=== PATIENT | female | born 1995 | race African-American/Black ===

== ENCOUNTER 2019-03-05 15:37 | Emergency (ER) | payer OTHER ==
[~2019-03-05] VITALS: Ht 160 cm; Wt 104.5 kg
[2019-03-05 16:19] LABS: BASO # 0.1 10^3/uL (0.0-0.2); BASO % 0.9 % (0.0-1.0); EOS # 0.2 10^3/uL (0.0-0.50); EOS % 2.1 % (0.0-3.0); HEMATOCRIT 36.1 % (36.0-47.0); LYMPH # 2.4 10^3/uL (1.5-6.5); LYMPH % 34.8 % (24.0-44.0); MEAN CORPUSCULAR HEMOGLOBIN 31.7 pg (27.0-33.0); MEAN CORPUSCULAR HGB CONC 33.2 g/dl (32.0-36.5); MEAN CORPUSCULAR VOLUME 95.5 fl (80.0-96.0); MONO # 0.7 10^3/uL (0.0-0.8); MONO % 9.6 % (0.0-5.0); NEUTROPHILS # 3.7 10^3/uL (1.8-7.7); NEUTROPHILS % 52.3 % (36.0-66.0); PLATELET COUNT, AUTOMATED 294 10^3/uL (150-450); RED BLOOD COUNT 3.78 10^6/uL (4.00-5.40)
[2019-03-05 16:22] LABS: URINE PREG TEST POSITIVE (NEGATIVE)
[2019-03-05 17:29] LABS: ALBUMIN 3.6 GM/DL (3.2-5.2); ALT/SGPT 13 U/L (12-78); BILIRUBIN,DIRECT 0.1 MG/DL (0.0-0.2); BILIRUBIN,TOTAL 0.3 MG/DL (0.2-1.0); BLOOD UREA NITROGEN 14 MG/DL (7-18); CARBON DIOXIDE LEVEL 24 MEQ/L (21-32); CHLORIDE LEVEL 107 MEQ/L (98-107); CREATININE FOR GFR 0.78 MG/DL (0.55-1.30); GLOMERULAR FILTRATION RATE > 60.0 (>60); GLUCOSE, FASTING 89 MG/DL (70-100); HCG, SERUM QUANTITATIVE 20366 MIU/ML; LIPASE 192 U/L (73-393); POTASSIUM SERUM 3.3 MEQ/L (3.5-5.1); SODIUM LEVEL 139 MEQ/L (136-145); TOTAL PROTEIN 6.7 GM/DL (6.4-8.2)
[2019-03-05] MEDS ORDERED: POTASSIUM CHLORIDE 10 MEQ SR TABLET PO ONE (17:45)
[2019-03-05 17:48] LABS: CHLAMYDIA DNA AMPLIFICATION NEGATIVE (NEGATIVE); GC DNA AMPLIFICATION NEGATIVE (NEGATIVE)
[2019-03-05] MEDS ORDERED: ONDANSETRON 4 MG ORAL DISINTEGRATING TAB (Q0162 PER 1MG) PO ONE (18:00)
--- NOTE | 2019-03-05 19:05 | REPVR ---
EXAM: US First Trimester, Transabdominal and US Duplex Artery or Vein, Ovaries, Limited EXAM DATE/TIME: 03/05/2019 5:02 PM CLINICAL HISTORY: 23 years old, female; complicated by abdominal or pelvic pain; Left lower quadrant; First trimester; Gestational age or lmp: 6; ; Additional info: Llq pain preg eval for iup TECHNIQUE: Imaging protocol: Real-time transabdominal obstetrical ultrasound of the maternal pelvis and a first trimester , less than 14 weeks 0 days, with image documentation. Real-time duplex ultrasound scan of the arterial or venous flow of the ovaries with B-mode, color Doppler flow and spectral waveform analysis, limited Duplex. COMPARISON: No relevant prior studies available. FINDINGS: GESTATION: Gestation: There is a single intrauterine gestational sac demonstrating decidual reaction. This contains a pole and yolk sac. Heart rate: The heart rate is 99 bpm. Placenta: Unremarkable. No subchorionic bleed. Amniotic fluid: Amniotic and chorionic fluid are normal for gestational age. BIOMETRY: Estimated gestational age: The crown-rump length is 0.3 cm corresponding to a gestational age of 5 weeks 6 days. Estimated due date: The CHARLES is 10/30/2019. MATERNAL: Uterus: Unremarkable. Right adnexa: The right ovary measures 2.2 x 3.5 x 2.0 cm. There is a 0.9 cm follicle. Normal color and spectral blood flow. The arterial peak systolic velocity is 26 cm/s. Left adnexa: The left ovary measures 2.8 x 4.2 x 2.3 cm. There is a left ovarian simple cyst measuring 2.1 x 2.6 x 1.6 cm. Normal color and spectral blood flow. The arterial peak systolic velocity is 21 cm/s. Intraperitoneal: No intraperitoneal free fluid. IMPRESSION: 1. Single live intrauterine gestation, as above. 2. The heart rate is 99 bpm, this is borderline low which may be related to the early gestational age. 3. Left ovarian simple cyst. 4. No evidence of ovarian torsion. Electronically signed by: Britt Che On 03/05/2019 19:05:32 PM
[2019-03-05 19:13] VITALS: BP 103/59
== END 2019-03-05 20:43 | disposition left against medical advice (07) ==
LOC: M ED 15:37
DX: O99.89 Other specified diseases and conditions complicating pregnancy, childbirth and the puerperium (principal); R10.9 Unspecified abdominal pain; O34.81 Maternal care for other abnormalities of pelvic organs, first trimester; Z3A.01 Less than 8 weeks gestation of pregnancy; Z53.21 Procedure and treatment not carried out due to patient leaving prior to being seen by health care provider
CPT/HCPCS: 76801; 80048; 80076; 81001; 83690; 84702; 84703; 85025; 86850; 86900; 86901; 87210; 87491; 87591; 93976; 99282; Q0162

== ENCOUNTER 2019-04-09 13:49 | Emergency (ER) | payer OTHER ==
[~2019-04-09] VITALS: Ht 167.6 cm; Wt 50.9 kg
[2019-04-09] MEDS ORDERED: METR0.759 (13:56)
[2019-04-09] MEDS ORDERED: NITR100C2 (13:56)
[2019-04-09 14:35] LABS: BASO % 0.5 % (0.0-1.0); EOS # 0.1 10^3/uL (0.0-0.5); EOS % 1.1 % (0.0-3.0); HEMATOCRIT 31.8 % (36.0-47.0); HEMOGLOBIN 10.7 g/dl (12.0-15.5); LYMPH # 1.9 10^3/uL (1.5-5.0); LYMPH % 29.5 % (24.0-44.0); MEAN CORPUSCULAR HEMOGLOBIN 31.9 pg (27.0-33.0); MEAN CORPUSCULAR HGB CONC 33.6 g/dl (32.0-36.5); MEAN CORPUSCULAR VOLUME 94.9 fl (80.0-96.0); MONO # 0.6 10^3/uL (0.0-0.8); MONO % 9.2 % (0.0-5.0); NEUTROPHILS # 3.8 10^3/uL (1.5-8.5); NEUTROPHILS % 59.2 % (36.0-66.0); PLATELET COUNT, AUTOMATED 281 10^3/uL (150-450); RED BLOOD COUNT 3.35 10^6/uL (4.00-5.40); WHITE BLOOD COUNT 6.4 10^3/uL (4.0-10.0)
[2019-04-09 15:43] LABS: ALBUMIN 3.4 GM/DL (3.2-5.2); ALT/SGPT 15 U/L (12-78); BILIRUBIN,DIRECT 0.1 MG/DL (0.0-0.2); BILIRUBIN,TOTAL 0.4 MG/DL (0.2-1.0); BLOOD UREA NITROGEN 12 MG/DL (7-18); CARBON DIOXIDE LEVEL 24 MEQ/L (21-32); CHLORIDE LEVEL 106 MEQ/L (98-107); CREATININE FOR GFR 0.66 MG/DL (0.55-1.30); GLOMERULAR FILTRATION RATE > 60.0 (>60); GLUCOSE, FASTING 108 MG/DL (70-100); HCG, SERUM QUANTITATIVE 131284 MIU/ML; LIPASE 233 U/L (73-393); POTASSIUM SERUM 3.6 MEQ/L (3.5-5.1); SODIUM LEVEL 136 MEQ/L (136-145); TOTAL PROTEIN 6.5 GM/DL (6.4-8.2)
[2019-04-09] MEDS ORDERED: ACETAMINOPHEN 500 MG TAB PO ONE (16:45)
--- NOTE | 2019-04-09 17:34 | REPVR ---
EXAM: US First Trimester, Transabdominal EXAM DATE/TIME: 04/09/2019 5:23 PM CLINICAL HISTORY: 23 years old, female; complicated by abdominal or pelvic pain; Left lower quadrant; First trimester; Gestational age or lmp: 11; ; Additional info: Left pelvic pain TECHNIQUE: Imaging protocol: Real-time transabdominal obstetrical ultrasound of the maternal pelvis and a first trimester , less than 14 weeks 0 days, with image documentation. COMPARISON: US OB 03/05/2019 4:53 PM FINDINGS: GESTATION: Gestation: Single gestational sac in the uterus. Single fetus in the gestational sac demonstrates a crown-rump length of 4.3 cm. Heart rate: heart rate is 163 beats per minute. Placenta: Early placental tissue forming anteriorly. Amniotic fluid: Amniotic and chorionic fluid are normal for gestational age. BIOMETRY: Estimated gestational age: Gestational age based on crown-rump length is 11 weeks 1 day which corresponds to a menstrual dates. CHARLES 10/28/2019. MATERNAL: Uterus: Unremarkable. Cervix: Unremarkable. Right adnexa: Unremarkable. Left adnexa: Left ovarian cyst measures 2.1 x 1.2 x 1.5 cm. Intraperitoneal: No intraperitoneal free fluid. IMPRESSION: Unremarkable early gestation of 11 weeks 1 day. Detailed structural survey can be performed between 19-20 weeks if clinically desired. Electronically signed by: El Davison On 04/09/2019 17:33:21 PM
[2019-04-09 17:37] VITALS: BP 112/64
== END 2019-04-09 18:03 | disposition home or self-care (01) ==
LOC: M ED 13:49
DX: O34.81 Maternal care for other abnormalities of pelvic organs, first trimester (principal); N83.202 Unspecified ovarian cyst, left side; O99.011 Anemia complicating pregnancy, first trimester; O23.591 Infection of other part of genital tract in pregnancy, first trimester; Z3A.11 11 weeks gestation of pregnancy; Z79.2 Long term (current) use of antibiotics

== ENCOUNTER 2019-05-30 14:33 | Emergency (ER) | payer OTHER ==
[~2019-05-30 14:33] MED LIST: METR0.759; NITR100C2
[2019-05-30] MEDS ORDERED: FOLI1TAB11 (14:42)
[2019-05-30] MEDS ORDERED: PREN1TAB14 (15:43)
[2019-05-30] MEDS ORDERED: UNIS25TA3 PO (15:43)
[2019-05-30] MEDS ORDERED: AMOX500C PO (16:55)
[2019-05-30 17:09] VITALS: BP 96/54
== END 2019-05-30 17:10 | disposition home or self-care (01) ==
LOC: M ED 14:33
DX: O23.42 Unspecified infection of urinary tract in pregnancy, second trimester (principal); Z87.442 Personal history of urinary calculi; Z87.440 Personal history of urinary (tract) infections; O99.512 Diseases of the respiratory system complicating pregnancy, second trimester; J45.909 Unspecified asthma, uncomplicated; Z91.018 Allergy to other foods; Z3A.18 18 weeks gestation of pregnancy; Z79.899 Other long term (current) drug therapy

== ENCOUNTER 2019-06-24 10:15 | Outpatient (CLI) | payer OTHER ==
[~2019-06-24] VITALS: Ht 165.1 cm; Wt 53.7 kg
[~2019-06-24 10:15] MED LIST changes: +AMOX500C PO; +FOLI1TAB11; +PREN1TAB14; +UNIS25TA3 PO
[2019-06-24 10:31] VITALS: BP 111/63
[2019-06-24] MEDS ORDERED: APAP325T4 PO (10:36)
--- NOTE | 2019-06-24 12:36 | IPNPDOC ---
Text Note Date of Service The patient was seen on 06/24/19. NOTE Triage Note Gabby is a 24yo with SIUP at 22+ weeks gestation who presented to triage with complaint of lower left abdominal pain. Pain does not come and go. No other sx- denies n/v/diarrhea/constipation. No vaginal bleeding, ctx, lof. Feels movement. 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 No e/o PTL- SCE closed/thick/high and no ctx on toco. Reassuring status. Vitals wnl, benign exam. Plan: -Reassurance provided -Keep next regular OB appt in Dec -Tylenol prn, warm baths -Return precautions discussed -Safe for discharge Dr. Dori Fountain MD VS,Manjula, I+O VS, Manjula, I+O Vital Signs Date Time Temp Pulse Resp B/P (MAP) Pulse Ox O2 Delivery O2 Flow Rate FiO2 06/24/19 10:31 97.7 85 17 111/63 (79) Dori Fountain MD Jun 24, 2019 12:36
== END 2019-06-24 12:40 | disposition home or self-care (01) ==
LOC: M LDO 10:15
PROVIDERS: ATTEND Obstetrics & Gynecology
DX: O26.892 Other specified pregnancy related conditions, second trimester (principal); R10.2 Pelvic and perineal pain; Z3A.22 22 weeks gestation of pregnancy
CPT/HCPCS: G0378; G0463

== ENCOUNTER 2019-07-28 12:59 | Emergency (ER) | payer OTHER ==
[~2019-07-28] VITALS: Ht 165.1 cm; Wt 54.7 kg
[2019-07-28 12:59] VITALS: BP 108/59
[~2019-07-28 12:59] MED LIST changes: +APAP325T4 PO
== END 2019-07-28 14:36 | disposition admitted as inpatient to this hospital (09) ==
LOC: M ED 12:59
DX: Z53.21 Procedure and treatment not carried out due to patient leaving prior to being seen by health care provider (principal)

== ENCOUNTER 2019-07-28 14:40 | Outpatient (CLI) | payer OTHER ==
[~2019-07-28] VITALS: Ht 165.1 cm; Wt 54.5 kg
[2019-07-28 15:07] VITALS: BP 106/65
[2019-07-28 16:43] LABS: APPEARANCE, URINE CLEAR (CLEAR); BACTERIA, URINE AUTO 1+ (NEGATIVE); BILIRUBIN, URINE AUTO NEGATIVE (NEGATIVE); BLOOD, URINE BLOOD NEGATIVE (NEGATIVE); COLOR, URINE YELLOW (YELLOW); GLUCOSE, URINE (UA) AUTO NEGATIVE (NEGATIVE); KETONE, URINE AUTO NEGATIVE (NEGATIVE); LEUKOCYTE ESTERASE, URINE AUTO NEGATIVE (NEGATIVE); MUCUS, URINE SMALL (NEGATIVE); NITRITE, URINE AUTO NEGATIVE (NEGATIVE); PROTEIN, URINE AUTO NEGATIVE (NEGATIVE); RBC, URINE AUTO 1 /HPF (0-3); SPECIFIC GRAVITY URINE AUTO 1.021 (1.002-1.035); SQUAMOUS EPITHELIAL CELL UR AU 2 /HPF (0-6); WBC, URINE AUTO 3 /HPF (0-3)
--- NOTE | 2019-07-28 17:01 | REP ---
Clinical: contractions and pelvic pain Comparison: 04/09/2019 . Findings: Examination demonstrates a single live intrauterine in amandeep breech presentation. motion is identified by technologist. Placenta is noted posterior/fundal and grade one without evidence for placenta previa or abruption. Amniotic fluid volume is normal. Cervix measures 4.3 cm in length and appears closed. FHR equals 143 beats per minute. Gestational age by LMP 26 weeks 6 days. Impression: Single live intrauterine in breech presentation. No gross abnormalities are identified. Cervix measures 4.3 cm length and appears closed. Electronically Signed by Gilbert Ding MD 07/28/2019 04:52 P
[2019-07-28 17:34] VITALS: BP 96/53
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
== END 2019-07-28 18:10 | disposition home or self-care (01) ==
LOC: M LDO 14:40
PROVIDERS: ATTEND Obstetrics & Gynecology
DX: O23.592 Infection of other part of genital tract in pregnancy, second trimester (principal); B37.3 Candidiasis of vulva and vagina; Z3A.26 26 weeks gestation of pregnancy
CPT/HCPCS: 59025; 76817; 81001; 87088; 87186; 99281; G0378; G0463

== ENCOUNTER 2019-08-14 23:57 | Outpatient (CLI) | payer OTHER ==
[~2019-08-14] VITALS: Ht 165.1 cm; Wt 57.1 kg
[2019-08-15 00:18] VITALS: BP 107/61
[2019-08-15] MEDS ORDERED: ONDANSETRON 4MG/2ML VIAL (J2405) IV ONE (00:45)
[2019-08-15] MEDS ORDERED: LR 1,000 ML IV ONE (00:45)
[2019-08-15 01:19] LABS: HEMATOCRIT 33.7 % (36.0-47.0); HEMOGLOBIN 10.8 g/dl (12.0-15.5); MEAN CORPUSCULAR HEMOGLOBIN 31.5 pg (27.0-33.0); MEAN CORPUSCULAR VOLUME 98.3 fl (80.0-96.0); PLATELET COUNT, AUTOMATED 224 10^3/uL (150-450); RED BLOOD COUNT 3.43 10^6/uL (4.00-5.40); WHITE BLOOD COUNT 7.5 10^3/uL (4.0-10.0)
[2019-08-15 01:24] LABS: APPEARANCE, URINE CLOUDY (CLEAR); BACTERIA, URINE AUTO 2+ (NEGATIVE); BILIRUBIN, URINE AUTO NEGATIVE (NEGATIVE); BLOOD, URINE BLOOD NEGATIVE (NEGATIVE); COLOR, URINE YELLOW (YELLOW); GLUCOSE, URINE (UA) AUTO NEGATIVE (NEGATIVE); KETONE, URINE AUTO NEGATIVE (NEGATIVE); LEUKOCYTE ESTERASE, URINE AUTO 1+ (NEGATIVE); MUCUS, URINE SMALL (NEGATIVE); NITRITE, URINE AUTO NEGATIVE (NEGATIVE); PROTEIN, URINE AUTO NEGATIVE (NEGATIVE); RBC, URINE AUTO 1 /HPF (0-3); SPECIFIC GRAVITY URINE AUTO 1.023 (1.002-1.035); SQUAMOUS EPITHELIAL CELL UR AU 8 /HPF (0-6); WBC, URINE AUTO 7 /HPF (0-3)
[2019-08-15 01:41] LABS: ALBUMIN 2.7 GM/DL (3.2-5.2); ALT/SGPT 17 U/L (12-78); BILIRUBIN,TOTAL 0.3 MG/DL (0.2-1.0); BLOOD UREA NITROGEN 10 MG/DL (7-18); CARBON DIOXIDE LEVEL 22 MEQ/L (21-32); CHLORIDE LEVEL 106 MEQ/L (98-107); GLOMERULAR FILTRATION RATE > 60.0 (>60); GLUCOSE, FASTING 76 MG/DL (70-100); POTASSIUM SERUM 3.7 MEQ/L (3.5-5.1); SODIUM LEVEL 136 MEQ/L (136-145)
[2019-08-15] MEDS ORDERED: NITROFURANTOIN (MACROBID) 100 MG CAP PO ONE (02:15)
[2019-08-15] MEDS ORDERED: ACETAMINOPHEN 500 MG TAB PO ONE (02:15)
--- NOTE | 2019-08-15 02:16 | IPNPDOC ---
Text Note Date of Service The patient was seen on 08/15/19. NOTE 24 yo at 29+3 weeks gestation presented to triage with nausea, intermittent headache, suprapubic pain, and frequent urination. Also reports bilateral leg numbness. She denies any bleeding or leakage of fluid. She endorses movement. She denies fevers/chills, recent travel, RUQ pain, visual changes, or SOB. She was treated for a yeast infection with clotrimazole about 2 and a half weeks ago. Chaperoned by L&D RN Vitals - VSS, afebrile, normotensive, non tachycardic General - AAOX3, sitting up in bed, NAD Abdomen - Gravid uterus, no fundal tenderness Pelvic - Normal external genitalia. Speculum inserted into the vagina. Physiologic discharge seen in vault. Cervix closed. FFN obtained from posterior fornix. Speculum removed. Cervix cl/thick/high to digital exam. FHR tracing - Cat I and appropriate for gestational age. +accels, no decels. Ctx present and irregular. Labs: UA - SG 1.023, 2+ bacteria, 7 WBCs, neg nitrite CBC - 7.5>10.8/33.7<224 BMP - 136/3.7--106/22--10/0.6<76 AST/ALT - 16 FFN - negative No evidence of labor. Cervix closed and FFN negative. Contractions spaced after IV hydration. UA and symptoms suggestive of possible UTI. Will treat empirically with macrobid. Headache and nausea likely secondary to dehy dration. Symptoms improved after zofran and IV fluids and tylenol. Reassuring status. Patient discharged home with return precautions. DO ANJALI Huddleston Fishbone I+O Manjula ALBA I+O Laboratory Tests 08/15/19 01:10 Vital Signs Date Time Temp Pulse Resp B/P (MAP) Pulse Ox O2 Delivery O2 Flow Rate FiO2 08/15/19 00:18 98.7 83 107/61 (76) BARBIE HUDDLESTON DO Aug 15, 2019 02:16
== END 2019-08-15 03:00 | disposition home or self-care (01) ==
LOC: M LDO 23:57
PROVIDERS: ATTEND Obstetrics & Gynecology
DX: O99.283 Endocrine, nutritional and metabolic diseases complicating pregnancy, third trimester (principal); E86.0 Dehydration; Z3A.29 29 weeks gestation of pregnancy; R11.0 Nausea; R51 Headache
CPT/HCPCS: 59025; 80053; 81001; 82731; 85027; G0378; G0463; J2405

== ENCOUNTER 2019-10-06 08:26 | Inpatient (IN) | payer OTHER ==
[~2019-10-06] VITALS: Ht 165.1 cm; Wt 60.0 kg
[2019-10-06] VITALS (7 sets, daily range): BP systolic 107–128; BP diastolic 64–83
[2019-10-06] MEDS ORDERED: PENICILLIN G POTASSIUM IV 5 MU in D5W MINI-BAG PLUS 100 ML IV STA (09:25)
[2019-10-06] MEDS ORDERED: LACTATED RINGER'S 1000 ML IV STA (09:25)
[2019-10-06] MEDS ORDERED: PROMETHAZINE INJ 25 MG/ML VIAL (J2550) IV ONE (09:30)
[2019-10-06] MEDS ORDERED: BUTORPHANOL 2 MG/ML INJ (J0595) IV PRN (09:30)
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
[2019-10-06] MEDS: LR 1,000 ML IV SCH ×2 (10:01→10:27)
[2019-10-06 10:02] LABS: HEMATOCRIT 35.7 % (36.0-47.0); HEMOGLOBIN 11.7 g/dl (12.0-15.5); MEAN CORPUSCULAR HGB CONC 32.8 g/dl (32.0-36.5); MEAN CORPUSCULAR VOLUME 97.5 fl (80.0-96.0); PLATELET COUNT, AUTOMATED 200 10^3/uL (150-450); RED BLOOD COUNT 3.66 10^6/uL (4.00-5.40); WHITE BLOOD COUNT 8.4 10^3/uL (4.0-10.0)
[2019-10-06] MEDS ORDERED: OXYTOCIN 30 UNITS IN 0.9% NaCl 500ML IV BAG (J2590) As Ordered ONE (10:43)
--- NOTE | 2019-10-06 13:24 | DNPDOC ---
[facility] Delivery Note Delivery Note DATE OF DELIVERY: 06 October 2019 PREDELIVERY DIAGNOSIS: 36w6d gestation and pre-term labor. POST DELIVERY DIAGNOSIS: Delivered. PROCEDURE: Spontaneous vaginal delivery MILK CONDENSER: Dr. Dori Fountain MD ANESTHESIA: IV stadol with phenergan ESTIMATED BLOOD LOSS: 200 mL. FINDINGS: 5 pound 5 ounce 2420g female , Score 9/9 DELIVERY SUMMARY: Gabby is a 24yo [id number] s/p uncomplicated at 1258 on 10/06/2019 after presenting in active pre-term labor at 36w6d. She was 4cm on presentation, and quickly progressed to C/C/0 at which AROM, clear, was performed. She then began pushing. 's head delivered OA, restituted CIPRIANO. Right anterior shoulder delivered followed by posterior shoulder and corpus. Infant was vigorous with spontaneous cry, placed on maternal abdomen and cord was clamped x2 after it stopped pulsing and was then cut by FOB. Infant's nose and mouth were suctioned with bulb suction. Apgars 9/9. With traction on the umbilical cord and uterine massage, placenta delivered spontaneously and intact with 3 vessel centrally inserted cord. Uterine massage was performed and fundus was then firm at u-2cm. IV Pitocin given per protocol. Inspection of perineum and vagina revealed very small bilateral labial abrasions that did not require repair. Hemostasis noted. All counts correct x2. Mom and were doing well when I left the room. MD Essie Samuel Katrina D MD Oct 06, 2019 13:24
[2019-10-06] MEDS ORDERED: IBUPROFEN 600 MG TAB PO PRN (13:30)
[2019-10-06] MEDS ORDERED: DIBUCAINE 1% OINTMENT 30GM TOP PRN (13:30)
[2019-10-06] MEDS ORDERED: DOCUSATE SODIUM 100 MG CAP PO PRN (13:30)
[2019-10-06] MEDS ORDERED: ACETAMINOPHEN TAB 650MG DOSE (2X325MG) PO PRN (13:30)
[2019-10-06] MEDS ORDERED: PENICILLIN G POTASSIUM IV 2.5 MU in IV 1 EA IV SCH (14:00)
[2019-10-06] MEDS ORDERED: OXYTOCIN DRIP 30 UNITS in IV 1 EA IV SCH (14:00)
[2019-10-06] MEDS ORDERED: MEASLES,MUMPS,RUBELLA VACCINE INJ (MMR-II) (90707) SC SCH (14:00)
[2019-10-06] MEDS ORDERED: RHOGAM 300 MCG (1500 IU) INJ (J2790) IM SCH (14:00)
[2019-10-06] MEDS: ACETAMINOPHEN 500 MG TAB PO PRN (20:34)
[2019-10-07 05:48] VITALS: BP 102/59
[2019-10-07] MEDS: ACETAMINOPHEN 500 MG TAB PO PRN (07:08)
[2019-10-07] MEDS: PRENATAL VITAMINS CHEWABLE TABLET PO SCH (07:08)
--- NOTE | 2019-10-07 08:35 | IPNPDOC ---
Progress Note Date of Service: Oct 07, 2019 Day#: 1 Progress Note PPD 1 SUBJECT: Gabby is a 24yo [id number] s/p uncomplicated at 1258 on 10/06/2019 after presenting in active pre-term labor at 36w6d doing well day # 1. She has been ambulating, voiding spontaneously without issue and tolerating regular diet. Breast feeding without issue, supplementing with formula for baby 's glucose values to improve. Reports lochia is like a normal period. No f/c/n/v/CP/SOB. OBJECTIVE: VITAL SIGNS: Within normal limits, afebrile. Alert and oriented times three. Abdomen: Fundus firm at U-2. Soft, NTTP. Extremities: no pain with palpation of calves ASSESSMENT: Gabby is a 24yo [id number] s/p uncomplicated at 1258 on 10/06/2019 after presenting in active pre-term labor at 36w6d doing well day # 1. Vitals within normal limits, afebrile, hemodynamically stable with no evidence of infection. PLAN: 1. Routine care 2. Tylenol and Motrin for pain. 3. Encourage breast feeding and ambulation. 4. Regular diet 5. Unsure of contraception just yet 6. Discharge home tomorrow if meeting all milestones Dr. Dori Fountain MD VS, I&O, 24H, Fishbon Vital Signs/I&O Vital Signs Date Time Temp Pulse Resp B/P (MAP) Pulse Ox O2 Delivery O2 Flow Rate FiO2 10/07/19 05:48 98.4 89 16 102/59 (73) 98 Room Air I&O- Last 24 Hours up to 6 AM 10/07/19 06:00 Intake Total 1600 ml Output Total 200 ml Balance 1400 ml Laboratory Data 24H LABS Laboratory Tests 2 10/06/19 09:38: Serology Scanned Report Hepatitis B Testing 10/06/19 09:51: Nucleated Red Blood Cells % (auto) 0.0 CBC/BMP Laboratory Tests 10/06/19 09:51 Dori Fountain MD Oct 07, 2019 08:35
[2019-10-07 11:30] VITALS: BP 117/65
[2019-10-07 17:54] VITALS: BP 100/50
[2019-10-07] MEDS: IBUPROFEN 800 MG TAB PO PRN (21:58)
[2019-10-08 05:54] VITALS: BP 102/55
[2019-10-08] MEDS: ACETAMINOPHEN 500 MG TAB PO PRN (06:16)
--- NOTE | 2019-10-08 07:38 | IPNPDOC ---
Progress Note Date of Service: Oct 08, 2019 Day#: 2 Progress Note SUBJECT: Gabby is a 24yo [id number] s/p uncomplicated at 1258 on 10/06/2019 after presenting in active pre-term labor at 36w6d day # 2. She has been ambulating, voiding spontaneously without issue and tolerating regular diet. Breast feeding without issue, supplementing with formula for baby's glucose values to improve. Reports lochia is like a normal period. No f/c/n/v/CP/SOB. undecided on contraceptive. OBJECTIVE: VITAL SIGNS: Within normal limits, afebrile. Alert and oriented times three. Abdomen: Fundus firm at U-2. Soft, NTTP. Extremities: no pain with palpation of calves a/p patient is ppd #2, doing well. encouraged breast feeding. continue routine ppc. d/c today. VS, I&O, 24H, Fishbone Vital Signs/I&O Vital Signs Date Time Temp Pulse Resp B/P (MAP) Pulse Ox O2 Delivery O2 Flow Rate FiO2 10/08/19 05:54 98.9 79 18 102/55 (71) 10/07/19 11:30 96 Room Air CARY CULVER DO Oct 08, 2019 07:38
--- NOTE | 2019-10-08 07:42 | OBDS ---
[facility] Obstetrical Discharge Sum. Obstetrical Discharge Summary Wine Fermenter/Provider: Dori Fountain MD Date: Oct 08, 2019 : 1 Term: 0 Pre-term: 1 Abortions: 0 Livin VDRL: Non-Reactive Rh: Positive Rubella: Immune Sex: Female Weight: grams (2420) A/P, Post Course List any complications Admission diagnosis: labor at 36+6wks gestation Discharge diagnosis: () Condition at Discharge: stable Discharge Instructions: Home Activity: as tolerated Diet: regular Medications: Filled at [facility] Follow-up: 6-8wks Hospital Course: Patient presented in labor at 36+6wks gestation. She progressed to have an uncomplicated spontaneous vaginal delivery. course uncomplicated and patient discharge on day #2. CARY CULVER DO Oct 08, 2019 07:42
[2019-10-08] MEDS: PRENATAL VITAMINS CHEWABLE TABLET PO SCH (08:32)
[2019-10-08] MEDS: IBUPROFEN 800 MG TAB PO PRN (11:23)
== END 2019-10-08 14:40 | disposition home or self-care (01) | DRG 807 ==
LOC: M LDO 08:26 → M LDI 09:25 → M OBS 16:12
PROVIDERS: ADMIT Obstetrics & Gynecology; ATTEND Obstetrics & Gynecology
PROC: 10E0XZZ Delivery of Products of Conception, External Approach (ICD-10-PCS; principal; 2019-10-06)
PROC: 10907ZC Drainage of Amniotic Fluid, Therapeutic from Products of Conception, Via Natural or Artificial Opening (ICD-10-PCS; 2019-10-06)
DX: O60.13X0 Preterm labor second trimester with preterm delivery third trimester, not applicable or unspecified (principal); Z37.0 Single live birth; Z3A.36 36 weeks gestation of pregnancy; O99.52 Diseases of the respiratory system complicating childbirth; J45.20 Mild intermittent asthma, uncomplicated; Z91.018 Allergy to other foods; O62.3 Precipitate labor

== ENCOUNTER 2020-11-06 09:32 | Emergency (ER) | payer OTHER ==
[~2020-11-06] VITALS: Ht 165.1 cm; Wt 49.5 kg
[2020-11-06 09:33] VITALS: BP 113/73
== END 2020-11-06 10:23 | disposition left against medical advice (07) ==
LOC: M ED 09:32
DX: Z53.21 Procedure and treatment not carried out due to patient leaving prior to being seen by health care provider (principal)

== ENCOUNTER 2021-06-19 19:46 | Outpatient (CLI) | payer OTHER ==
[~2021-06-19] VITALS: Ht 165.1 cm; Wt 62.5 kg
[2021-06-19] MEDS ORDERED: ACET325C5 PO (20:04)
[2021-06-19] MEDS ORDERED: PRENTAB9 PO (20:04)
[2021-06-19 20:08] VITALS: BP 115/67
[2021-06-19 21:33] VITALS: BP 141/64
[2021-06-19 21:43] VITALS: BP 119/57
--- NOTE | 2021-06-19 22:06 | IPNPDOC ---
Text Note Date of Service The patient was seen on 06/19/21. NOTE Subjective: Gabby is a 26-year-old female who is 32.6 weeks gestation with an CHARLES of 08/08/21. She initiated care with [facility] and is now seeing a pathology laboratory technologist, Victor Hugo Huddleston. Her is complicated by a history of delivery at 36.6 weeks gestation. She presents with vague complaints including having contractions yesterday every 10 minutes that resolved with Tylenol PM. She reports having a few contractions today. C/o increased pressure, suprapubic discomfort, and some radiating pain on occasion going down her left buttocks. She reports active movement. She denies leaking of fluid or vaginal bleeding. OB Hx: 10/06/19 of living female at 36.6 weeks gestation weighting 5 lbs 5 oz. Medical Hx: one seizure related to a head injury, none since; Asthma Surgical Hx: none Family Hx: non-contributory Social Hx: , does not smoke, no use of alcohol or drugs. Objective: FHR: 135, moderate variability, positive accelerations, no decelerations. [place]: one contraction noted General: Awake and alert. Sitting up in bed watching phone. In good spirits and laughing frequently Respiratory: Regular rate without use of accessory muscles. Abdomen: soft and not tender with palpation SCE: 1 cm 50% effaced, -3 station, posterior, soft, no show. Assessment: IUP at 32.6 weeks gestation, not in labor Plan: Patient discharged to home. Reviewed access to care, kick count, labor signs and danger signs to report. She has an appointment on 06/24/21 that she was encouraged to attend. She is to come back into hospital with any changes. VS,Fishbone, I+O VS, Fishbone, I+O Vital Signs Date Time Temp Pulse Resp B/P (MAP) Pulse Ox O2 Delivery O2 Flow Rate FiO2 06/19/21 20:08 98.7 99 18 115/67 (83) YOVANI LEON CNM Jun 19, 2021 22:06
[2021-06-19 22:12] LABS: APPEARANCE, URINE HAZY (CLEAR); BACTERIA, URINE AUTO NEGATIVE (NEGATIVE); BILIRUBIN, URINE AUTO NEGATIVE (NEGATIVE); BLOOD, URINE BLOOD NEGATIVE (NEGATIVE); COLOR, URINE YELLOW (YELLOW); GLUCOSE, URINE (UA) AUTO NEGATIVE (NEGATIVE); KETONE, URINE AUTO NEGATIVE (NEGATIVE); LEUKOCYTE ESTERASE, URINE AUTO 1+ (NEGATIVE); MUCUS, URINE SMALL (NEGATIVE); NITRITE, URINE AUTO NEGATIVE (NEGATIVE); PROTEIN, URINE AUTO NEGATIVE (NEGATIVE); RBC, URINE AUTO 1 /HPF (0-3); SQUAMOUS EPITHELIAL CELL UR AU 7 /HPF (0-6); WBC, URINE AUTO 1 /HPF (0-3)
== END 2021-06-19 21:33 | disposition home or self-care (01) ==
LOC: M LDO 19:46
PROVIDERS: ATTEND Advanced Practice Midwife
DX: O60.03 Preterm labor without delivery, third trimester (principal); R10.2 Pelvic and perineal pain; Z3A.32 32 weeks gestation of pregnancy
CPT/HCPCS: 59025; 81001; G0378; G0463

== ENCOUNTER 2021-07-04 19:31 | Outpatient (CLI) | payer OTHER ==
[~2021-07-04] VITALS: Ht 165.1 cm; Wt 64.0 kg
[~2021-07-04 19:31] MED LIST changes: +ACET325C5 PO; +PRENTAB9 PO
[2021-07-04 19:49] VITALS: BP 113/62
--- NOTE | 2021-07-05 00:14 | IPNPDOC ---
Text Note Date of Service The patient was seen on 07/04/21. NOTE Labor and Delivery Triage Note: S: 26-year-old G2, P1 at 35 weeks presents with c/o contractions. Denies vaginal bleeding or LOF. Reports active movement. O: vss, AF no ctx Cat 1 tracing Gen: well appearing, NAD Abd: gravid, soft, nttp cx:/-2 A/P: 26yo not in PTL reassuring status -home with PTL precautions and FKCs. -f/u at next OB appt Makenna Rma MD VS,Manjula, I+O VS, Manjula I+O Vital Signs Date Time Temp Pulse Resp B/P (MAP) Pulse Ox O2 Delivery O2 Flow Rate FiO2 07/04/21 19:49 98.2 104 16 113/62 (79) MAKENNA RAM MD. Jul 05, 2021 00:14
== END 2021-07-04 22:04 | disposition home or self-care (01) ==
LOC: M LDO 19:31
PROVIDERS: ATTEND Obstetrics & Gynecology
DX: O60.03 Preterm labor without delivery, third trimester (principal); Z3A.35 35 weeks gestation of pregnancy
CPT/HCPCS: 59025; G0378; G0463

== ENCOUNTER 2021-12-21 03:45 | Emergency (ER) | payer OTHER ==
[~2021-12-21] VITALS: Ht 165.1 cm; Wt 53.1 kg
[2021-12-21] MEDS ORDERED: DERMABOND TOPICAL SKIN ADHESIVE TOP ONE (07:25)
[2021-12-21] MEDS ORDERED: BACITRACIN OINTMENT 30GM TUBE TOP ONE (08:10)
[2021-12-21 08:44] VITALS: BP 114/70
== END 2021-12-21 08:47 | disposition home or self-care (01) ==
LOC: M ED 03:45
DX: S61.210A Laceration without foreign body of right index finger without damage to nail, initial encounter (principal); S67.190A Crushing injury of right index finger, initial encounter; W23.1XXA Caught, crushed, jammed, or pinched between stationary objects, initial encounter; Y92.9 Unspecified place or not applicable; Y93.9 Activity, unspecified; Y99.9 Unspecified external cause status; Z91.018 Allergy to other foods

== ENCOUNTER → 2022-05-21 | Outpatient (REF) | payer OTHER | LOC: M LAB REF 16:21 | PROVIDERS: ATTEND Physician Assistant | DX: J06.9 Acute upper respiratory infection, unspecified (principal); H10.9 Unspecified conjunctivitis ==

== ENCOUNTER → 2022-07-22 | Outpatient (REF) | LOC: M LAB 11:33 | PROVIDERS: ATTEND Nurse Practitioner Adult Health | DX: Z02.1 Encounter for pre-employment examination (principal) ==

== ENCOUNTER → 2022-08-26 | Outpatient (REF) | payer OTHER ==
[2022-08-26 19:17] LABS: GC DNA AMPLIFICATION NEGATIVE (NEGATIVE)
== END ==
LOC: M SFHCWAGY 16:55
PROVIDERS: ATTEND Obstetrics & Gynecology
DX: Z11.3 Encounter for screening for infections with a predominantly sexual mode of transmission (principal); Z12.4 Encounter for screening for malignant neoplasm of cervix

== ENCOUNTER → 2022-09-08 | Outpatient (REF) | LOC: M EMP 09:16 | PROVIDERS: ATTEND Family Medicine | DX: Z11.52 Encounter for screening for COVID-19 (principal) ==

== ENCOUNTER 2025-02-27 20:20 | Emergency (ER) | payer OTHER ==
[~2025-02-27] VITALS: Ht 165.1 cm; Wt 52.5 kg
[~2025-02-27 20:20] MED LIST changes: -METR0.759; +METR70GE8
[2025-02-27] MEDS ORDERED: HYDR-3363 PO (23:17)
[2025-02-27] MEDS ORDERED: MEDR4TAB PO (23:17)
[2025-02-27 23:23] VITALS: BP 106/59; TEMP 98; O2SAT 99
== END 2025-02-27 23:30 | disposition home or self-care (01) ==
LOC: M ED 20:20
DX: R21 Rash and other nonspecific skin eruption (principal); J45.909 Unspecified asthma, uncomplicated; G40.909 Epilepsy, unspecified, not intractable, without status epilepticus; Z91.030 Bee allergy status; Z91.09 Other allergy status, other than to drugs and biological substances; Z91.018 Allergy to other foods; Z79.899 Other long term (current) drug therapy

== ENCOUNTER 2025-03-06 12:12 | Emergency (ER) | payer OTHER ==
[~2025-03-06] VITALS: Ht 165.1 cm; Wt 51.6 kg
[~2025-03-06 12:12] MED LIST changes: +HYDR-3363 PO; +MEDR4TAB PO
[2025-03-06 13:36] LABS: BASO # 0.0 10^3/uL (0.0-0.2); BASO % 0.4 % (0.0-1.0); EOS # 0.1 10^3/uL (0.0-0.5); EOS % 0.9 % (0.0-3.0); LYMPH # 3.5 10^3/uL (1.5-5.0); LYMPH % 33.8 % (24.0-44.0); MONO # 0.9 10^3/uL (0.0-0.8); MONO % 8.3 % (2.0-8.0); NEUTROPHILS # 5.8 10^3/uL (1.5-8.5); NEUTROPHILS % 56.0 % (36.0-66.0); PLATELET COUNT, AUTOMATED 307 10^3/uL (150-450)
[2025-03-06 13:39] LABS: KETONE, URINE AUTO RFX NEGATIVE (NEGATIVE); LEUKOCYTE ESTERASE UR AUTO RFX TRACE (NEGATIVE); MUCUS, URINE RFX SMALL (NEGATIVE); NITRITE, URINE AUTO RFX NEGATIVE (NEGATIVE); RBC, URINE AUTO RFX 2 /HPF (0-3); SQUAM EPITHELIAL CELL UR AURFX 24 /HPF (0-6); WBC, URINE AUTO RFX 2 /HPF (0-3)
[2025-03-06 13:56] LABS: HCG, SERUM QUALITATIVE POSITIVE (NEGATIVE)
[2025-03-06 13:58] LABS: ALT/SGPT 17 U/L (7.0-40); AST/SGOT 14 U/L (<34); CALCIUM LEVEL 9.6 MG/DL (8.5-10.1); CARBON DIOXIDE LEVEL 27 MMOL/L (20-31); CHLORIDE LEVEL 102 MMOL/L (98-107); CREATININE FOR GFR 0.81 MG/DL (0.55-1.30); GLOMERULAR FILTRATION RATE > 90.0 (>60); POTASSIUM SERUM 3.5 MMOL/L (3.5-5.1); SODIUM LEVEL 140 MMOL/L (136-145)
[2025-03-06 15:21] LABS: HCG, SERUM QUANTITATIVE 389.6 MIU/ML (<4.2)
[2025-03-06 15:49] LABS: Trichomonas vaginalis (AMP) NOT DETECTED (NEGATIVE)
[2025-03-06] MEDS ORDERED: ONDA-282 PO (16:11)
[2025-03-06 16:12] LABS: GC DNA AMPLIFICATION NEGATIVE (NEGATIVE)
[2025-03-06 16:21] VITALS: BP 114/75; TEMP 99.3; O2SAT 100
== END 2025-03-06 16:27 | disposition home or self-care (01) ==
LOC: M ED 12:12
DX: D25.9 Leiomyoma of uterus, unspecified (principal); Z3A.01 Less than 8 weeks gestation of pregnancy; Z91.040 Latex allergy status; Z91.030 Bee allergy status; Z91.018 Allergy to other foods; Z79.899 Other long term (current) drug therapy

== ENCOUNTER 2025-03-23 12:08 | Emergency (ER) | payer OTHER ==
[~2025-03-23] VITALS: Ht 165.1 cm; Wt 52.7 kg
[~2025-03-23 12:08] MED LIST changes: +ONDA-282 PO
[2025-03-23 13:11] LABS: BASO # 0.0 10^3/uL (0.0-0.2); BASO % 0.6 % (0.0-1.0); EOS # 0.0 10^3/uL (0.0-0.5); EOS % 0.3 % (0.0-3.0); LYMPH # 1.2 10^3/uL (1.5-5.0); LYMPH % 17.2 % (24.0-44.0); MONO # 0.6 10^3/uL (0.0-0.8); MONO % 8.0 % (2.0-8.0); NEUTROPHILS # 5.2 10^3/uL (1.5-8.5); NEUTROPHILS % 73.5 % (36.0-66.0); PLATELET COUNT, AUTOMATED 253 10^3/uL (150-450)
[2025-03-23 13:18] LABS: KETONE, URINE AUTO RFX NEGATIVE (NEGATIVE); LEUKOCYTE ESTERASE UR AUTO RFX NEGATIVE (NEGATIVE); MUCUS, URINE RFX MODERATE (NEGATIVE); NITRITE, URINE AUTO RFX NEGATIVE (NEGATIVE); RBC, URINE AUTO RFX 0 /HPF (0-3); SQUAM EPITHELIAL CELL UR AURFX 2 /HPF (0-6); WBC, URINE AUTO RFX 0 /HPF (0-3)
[2025-03-23 14:25] LABS: ALT/SGPT 22 U/L (7.0-40); AST/SGOT 24 U/L (<34); CALCIUM LEVEL 8.4 MG/DL (8.5-10.1); CARBON DIOXIDE LEVEL 24 MMOL/L (20-31); CHLORIDE LEVEL 103 MMOL/L (98-107); CREATININE FOR GFR 0.67 MG/DL (0.55-1.30); GLOMERULAR FILTRATION RATE > 90.0 (>60); HCG, SERUM QUANTITATIVE 163513.6 MIU/ML (<4.2); POTASSIUM SERUM 3.7 MMOL/L (3.5-5.1); SODIUM LEVEL 139 MMOL/L (136-145)
[2025-03-23] MEDS: NS (Normal Saline) 0.9% 1,000 ML IV ONE (14:59)
[2025-03-23] MEDS: FAMOTIDINE 20 MG TAB PO ONE (14:59)
[2025-03-23 15:42] VITALS: BP 98/57; TEMP 96.9; O2SAT 100
[2025-03-23] MEDS ORDERED: PEPC1TAB5 PO (16:37)
[2025-03-23] MEDS ORDERED: REGL10TA6 PO (16:37)
== END 2025-03-23 16:47 | disposition home or self-care (01) ==
LOC: M ED 12:08
DX: R11.2 Nausea with vomiting, unspecified (principal); Z91.018 Allergy to other foods; Z91.09 Other allergy status, other than to drugs and biological substances; Z91.040 Latex allergy status; Z91.030 Bee allergy status; Z79.899 Other long term (current) drug therapy
CPT/HCPCS: 80048; 80076; 81001; 83690; 84702; 85025; 96361; 96374; 99284; J2765

== ENCOUNTER 2025-07-13 18:34 | Emergency (ER) | payer OTHER ==
[~2025-07-13] VITALS: Ht 165.1 cm; Wt 52.4 kg
[~2025-07-13 18:34] MED LIST changes: +PEPC1TAB5 PO; +REGL10TA6 PO
[2025-07-13 21:00] VITALS: BP 106/67; TEMP 97.5; O2SAT 99
== END 2025-07-13 21:56 | disposition left against medical advice (07) ==
LOC: M ED 18:34
DX: Z53.21 Procedure and treatment not carried out due to patient leaving prior to being seen by health care provider (principal)